=== PATIENT | female | born 1960 | race Caucasian/White ===

== ENCOUNTER 2020-05-25 09:18 | Emergency (ER) | payer OTHER, SELFPAY ==
--- NOTE | ~2020-05-25 | XR_ITS ---
EXAMINATION: XR chest 2V DATE: 05/25/2020 09:42 INDICATION: Right anterior chest pain. Fall. TECHNIQUE: Frontal and lateral views of the chest were obtained. COMPARISON: None. FINDINGS: There is mild scarring at the lung apices. No pleural effusion or pneumothorax. The heart s ize is normal. 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 IMPRESSION: 1. Mild scarring at the lung apices. Reviewed, dictated and finalized at location A. ENGINEERING INTERN
[2020-05-25 09:26] VITALS: BP 169/72; PULSE 118; RESP 20; TEMP 36.6; O2SAT 100
--- NOTE | 2020-05-25 09:30 | ED.CHESTPAIN ---
HPI - Chest Pain General Chief Complaint: Chest Pain Stated Complaint: chest injury painful to breathe Time Seen by Provider: 05/25/20 09:30 Source: patient and RN notes reviewed History of Present Illness HPI narrative: Patient is a 60-year-old female who presents the urgent care with complaints of right sided chest pain due to a fall. Patient states that she tripped over her own feet in the middle of the night 2 nights ago and fell on top of a wooden space heater. Patient states that she has been using aspirin and ibuprofen for the pain. States that when she takes a deep breath the pain is more severe. Patient states that at rest she does have a dull ache to the right side of the chest. Patient denies of any shortness of breath. Denies of other any other injuries from the fall. No other acute complaints. No acute distress noted. Patient is slightly anxious. Aware of the plan of care. Some parts of this dictation were generated by voice recognition software and may contain typographical and/or grammatical inaccuracies. Related Data Home Medications Medication Instructions Recorded Confirmed No Home Medications 05/25/20 05/25/20 Allergies Allergy/AdvReac Type Severity Reaction Status Date / Time No Known Allergies Allergy Verified 05/25/20 09:38 Review of Systems Review of Systems: Narrative: CONSTITUTIONAL: Denies fever, chills, or sweats. EYES: Denies visual changes, redness, or discharge. ENT: Denies rhinorrhea, congestion, sore throat, or otalgia. CARDIOVASCULAR: Reports of right sided muscular chest pain RESPIRATORY: Denies cough or dyspnea. GASTROINTESTINAL: Denies abdominal pain, nausea, vomiting, or diarrhea. GENITOURINARY: Denies dysuria or hematuria. SKIN: Denies rash or itching. MUSCULOSKELETAL: Denies back pain, joint pain, or myalgia. NEUROLOGIC: Denies headache, numbness, or weakness. All other systems reviewed are negative, except as documented in HPI. PMFSH Comments At the time of my signature, I reviewed and agree with the nursing past medical, surgical, social, and family history. There is no relevant family history pertinent to the patient complaint. Exam Narrative: Exam Narrative: GENERAL: This is a well-nourished, well-developed patient, in no apparent distress. HEAD: normocephalic, atraumatic. EYES: PERRL. Sclera clear/white. Vision is grossly intact. EARS: External ears normal NOSE: External nose normal with no obvious nasal discharge, nares without redness, no rhinorrhea. THROAT: Mucous membranes moist NECK: Neck supple CARDIOVASCULAR: Regular rate and rhythm without murmurs, gallops, or rubs. Reproducible muscular right-sided chest tenderness RESPIRATORY: Clear to auscultation. Breath sounds equal bilaterally. No wheezes, rales, or rhonchi. SKIN: 7 x 3 cm of ecchymosis noted to the right side of the chest above the right breast NEURO: awake, alert, and oriented to person, place and time. There were no obvious focal neurologic abnormalities. EXTREMITIES: No clubbing, cyanosis, or edema. Course Vital Signs Vital signs: Vital Signs Temperature 97.9 F 05/25/20 09:26 Pulse Rate 118 H 05/25/20 09:26 Respiratory Rate 20 05/25/20 09:26 Blood Pressure 169/72 H 05/25/20 09:26 Pulse Oximetry 100 05/25/20 09:26 Temperature 97.9 F 05/25/20 09:26 Pulse Rate 118 H 05/25/20 09:26 Respiratory Rate 20 05/25/20 09:26 Blood Pressure 169/72 H 05/25/20 09:26 Pulse Oximetry 100 05/25/20 09:26 Reviewed-patient is informed that they may have pre-hypertension or hypertension based on a blood pressure reading in the department. I recommend the patient call the primary care provider listed on their discharge instructions or a physician of their choice this week to arrange follow-up for further evaluation of possible pre-hypertension or hypertension. MDM - Chest Pain MDM Narrative Medical decision making narrative: Reviewed x-ray results with the patient. She is aware that
--- NOTE | 2020-05-25 09:55 | ECG_ITS ---
Measurements Intervals [place] Rate: 84 P: -69 [place]: 122 QRS: 72 QRSD: 81 T: 66 QT: 356 QTc: 422 Interpretive Statements ECTOPIC ATRIAL RHYTHM INCOMPLETE RIGHT BUNDLE BRANCH BLOCK ABNORMAL ECG Electronically Signed On 05-25-2020 10:57:24 PERFORATING MACHINE OPERATOR by Sina Patel D.O.
== END 2020-05-25 10:15 | disposition home or self-care (01) ==
PROVIDERS: Emergency Provider Nurse Practitioner Family; PCP Family Medicine
DX: R07.89 Other chest pain (principal)
CPT/HCPCS: 71046; 93005; 99203; G0463